=== PATIENT | female | born 1955 | race Caucasian/White ===

== ENCOUNTER → 2018-09-01 | Outpatient (CLI) | payer MEDICARE | END | disposition home or self-care (01) | LOC: OIH 10:26 | PROVIDERS: ATTEND Nurse Practitioner Adult Health | DX: R91.8 Other nonspecific abnormal finding of lung field (principal); R06.00 Dyspnea, unspecified | CPT/HCPCS: 71046 ==

== ENCOUNTER → 2021-05-22 | Outpatient (CLI) | payer OTHER | END | disposition home or self-care (01) | LOC: OIH 08:35 | PROVIDERS: ATTEND Nurse Practitioner Adult Health | DX: Z13.6 Encounter for screening for cardiovascular disorders (principal) | CPT/HCPCS: 75571 ==

== ENCOUNTER 2021-07-13 07:34 | Inpatient (IN) | payer MEDICARE ==
[2021-07-11 09:23] LABS: BASOPHILS % (AUTO) 0.5 % (0.0-5.0); EOSINOPHILS % (AUTO) 0.9 % (0.0-8.0); HEMATOCRIT 44.4 % (36-48); LYMPHOCYTES % (AUTO) 21.8 % (21.0-51.0); MEAN CORPUSCULAR HEMOGLOBIN 31.7 pg (27.0-33.0); MEAN CORPUSCULAR HGB CONC 32.7 g/dL (32.0-36.0); MEAN CORPUSCULAR VOLUME 96.9 fL (79-99); MONOCYTES % (AUTO) 4.8 % (3.0-13.0); NEUTROPHILS % (AUTO) 71.6 % (40.0-77.0); PLATELET COUNT (AUTO) 280 K/uL (130-400); RED BLOOD CELL COUNT(AUTO) 4.58 MIL/uL (4.00-5.50); RED CELL DISTRIBUTION WIDTH 14.6 % (11.0-15.5); WHITE BLOOD COUNT (AUTO) 8.2 K/uL (4.8-10.8)
[2021-07-11 09:23] LABS: BILIRUBIN,URINE Negative (NEGATIVE); COLOR,URINE Yellow (YELLOW); GLUCOSE, URINE (UA) Negative (NEGATIVE); KETONES,URINE Negative (NEGATIVE); LEUKOCYTE ESTERASE ,URINE Large (NEGATIVE); NITRATE,URINE Negative (NEGATIVE); OCCULT BLOOD,URINE Small (NEGATIVE); PROTEIN,URINE Negative (NEGATIVE); UROBILINOGEN,URINE 0.2 mg/dL (0.2-1.0)
[2021-07-11 09:24] LABS: APPEARANCE,URINE SLIGHTLY CLOUDY (CLEAR)
[2021-07-11 09:32] LABS: RBC,URINE 0-1 /HPF (0-1)
[2021-07-11 09:33] LABS: BACTERIA,URINE Rare /HPF (None Seen); SQUAMOUS EPITHELIAL CELL,UR Few /HPF (0-2); TRICHOMONAS,URINE Moderate /LPF (None Seen)
[2021-07-11 09:34] LABS: CREATININE 0.8 mg/dL (0.5-1.5); POTASSIUM 4.5 mmol/L (3.5-5.1)
[2021-07-11 09:43] LABS: INR 0.94 (0.85-1.15); PROTHROMBIN TIME 10.3 SEC (9.6-11.6)
[2021-07-11 09:45] LABS: PARTIAL THROMBOPLASTIN TIME 25.4 SEC (26.3-35.5)
[~2021-07-13] VITALS: Ht 157.5 cm; Wt 56.7 kg
[2021-07-13] VITALS (13 sets, daily range): BP systolic 124–160; BP diastolic 58–92
[~2021-07-13 07:34] MED LIST: AMLO-257 PO; ATOR10TA69 PO; FLUT16H NS; MELO10CA3 PO; METO-408 PO; OMEP40CA21 PO; SOY1TABL2 PO; calcium,mag,zinc PO
[2021-07-13] MEDS ORDERED: 0.9%NACL 1000ML 1,000 ML IV ONE (07:47)
[2021-07-13] MEDS ORDERED: SODIUM BICARB 50MEQ 50ML VIAL 50 ML ONE (09:32)
[2021-07-13] MEDS ORDERED: MEPERIDINE-PF 25 MG/ML SYG ONE ×3 (09:32→10:53)
[2021-07-13] MEDS ORDERED: LIDOCAINE HCL 400MG/20ML VIAL ONE (09:32)
[2021-07-13] MEDS ORDERED: MIDAZOLAM HCL 1 MG/ML 2ML VIAL ONE ×3 (09:32→10:53)
[2021-07-13] MEDS ORDERED: METR-172 PO (09:32)
[2021-07-13] MEDS ORDERED: IOHEXOL-350 50ML VIAL IV ONE (09:32)
[2021-07-13] MEDS ORDERED: NITROGLYCERIN 50MG VIAL IV ONE (09:32)
[2021-07-13] MEDS ORDERED: IOHEXOL 350 MG/ML 100ML INFUS..BTL IV ONE (09:32)
[2021-07-13] MEDS ORDERED: ADENOSINE 90MG VIAL IV ONE (10:41)
[2021-07-13] MEDS ORDERED: METOPROLOL TARTRATE 1 MG/ML 5ML VIAL IV ONE (10:45)
[2021-07-13] MEDS ORDERED: HEPARIN 10,000 UNIT/10ML (1,000 UNIT/ML) VIAL ONE (10:47)
[2021-07-13] MEDS ORDERED: LABETALOL 20MG VIAL IV ONE (11:03)
[2021-07-13] MEDS ORDERED: 0.9%NACL 1000ML 1,000 ML IV SCH (11:30)
[2021-07-13] MEDS ORDERED: ONDANSETRON 4MG INJ ONE (11:39)
[2021-07-13] MEDS ORDERED: KETOROLAC 30MG VIAL (30MG/ML) ONE (11:48)
[2021-07-13] MEDS ORDERED: FAMOTIDINE 20MG VIAL IV ONE (12:14)
[2021-07-13] MEDS ORDERED: ONDANSETRON 4MG INJ IVP PRN (14:30)
[2021-07-13] MEDS ORDERED: ACETAMINOPHEN 325 MG TAB ONE (14:55)
[2021-07-13] MEDS ORDERED: ONDANSETRON 4MG INJ IV PRN (15:00)
[2021-07-13] MEDS ORDERED: ACETAMINOPHEN 325 MG TAB PO PRN (15:00)
[2021-07-13] MEDS ORDERED: LACTULOSE 20 GM/30 ML UDCUP PO PRN (15:00)
[2021-07-13] MEDS: FAMOTIDINE 20MG TAB PO SCH (20:09)
[2021-07-13] MEDS: METOPROLOL SUCCINATE 50 MG TAB.SR.24H PO SCH (20:12)
[2021-07-13] MEDS: FLUTICASONE PROPIONATE 50MCG/SPRAY 16 GM BOTTLE NS SCH (20:13)
[2021-07-13] MEDS: MELOXICAM SUBMICRONIZED 10 MG PO SCH (20:13)
[2021-07-13] MEDS: ACETAMINOPHEN 325 MG TAB PO PRN (20:16)
[2021-07-13] MEDS ORDERED: METOPROLOL TARTRATE 25 MG TAB PO SCH (21:00)
[2021-07-14 04:00] VITALS: BP 138/77
[2021-07-14 08:00] VITALS: BP 139/84
[2021-07-14] MEDS ORDERED: ENOXAPARIN SODIUM 1 MG/KG SQ SCH (09:00)
[2021-07-14] MEDS ORDERED: TICAGRELOR 90 MG TABLET PO SCH (09:00)
[2021-07-14] MEDS: [UNRECOGNIZED DRUG - OTHER] PO SCH (09:00)
[2021-07-14] MEDS: PANTOPRAZOLE 40 MG TAB DR PO SCH (09:00)
[2021-07-14] MEDS: ASPIRIN 81 MG EC TAB PO SCH (09:00)
[2021-07-14] MEDS: FAMOTIDINE 20MG TAB PO SCH ×2 (09:00→20:46)
[2021-07-14] MEDS: ATORVASTATIN 10 MG TABLET PO SCH (09:00)
[2021-07-14] MEDS ORDERED: PANTOPRAZOLE 40 MG TAB DR PO SCH (09:00)
[2021-07-14] MEDS: CALCIUM MAG ZINC PO SCH (09:00)
[2021-07-14] MEDS: METOPROLOL SUCCINATE 50 MG TAB.SR.24H PO SCH ×2 (09:30→20:46)
[2021-07-14] MEDS: AMLODIPINE 5 MG TAB PO SCH (09:30)
[2021-07-14] MEDS: ENOXAPARIN SODIUM 60 MG/0.6 ML SQ SCH ×2 (09:31→20:46)
[2021-07-14] MEDS ORDERED: IPRATROPIUM/ALBUTEROL SULFATE 3 ML SOLUTION IH ONE (10:54)
[2021-07-14] MEDS: IPRATROPIUM/ALBUTEROL SULFATE 3 ML SOLUTION IH SCH ×3 (11:00→22:36)
[2021-07-14 11:38] LABS: MEAN CORPUSCULAR HEMOGLOBIN 32.2 pg (27.0-33.0); MEAN CORPUSCULAR HGB CONC 32.6 g/dL (32.0-36.0); PLATELET COUNT (AUTO) 245 K/uL (130-400); RED BLOOD CELL COUNT(AUTO) 3.94 MIL/uL (4.00-5.50); RED CELL DISTRIBUTION WIDTH 14.7 % (11.0-15.5); WHITE BLOOD COUNT (AUTO) 7.2 K/uL (4.8-10.8)
[2021-07-14] MEDS: FUROSEMIDE 40MG VIAL IV SCH (11:46)
[2021-07-14] MEDS: MORPHINE 2 MG SYG IVP SCH (11:46)
[2021-07-14 11:52] LABS: CREATININE 0.9 mg/dL (0.5-1.5)
[2021-07-14 11:57] LABS: ALBUMIN 3.3 g/dL (3.5-5.0); BILIRUBIN,TOTAL 0.3 mg/dL (0.2-1.0); TOTAL PROTEIN, SERUM 6.6 g/dL (6.0-8.3)
[2021-07-14 11:59] LABS: B-TYPE NATRIURETIC PEPTIDE 70 pg/mL (0-100)
[2021-07-14 12:00] VITALS: BP 179/83
[2021-07-14 12:23] LABS: BASOPHILS % (MANUAL) 1 % (0-2); LYMPHOCYTES % (MANUAL) 22 % (22-44); MONOCYTES % (MANUAL) 7 % (2-9); SEGMENTED NEUTROPHILS % 70 % (40-70)
[2021-07-14 12:26] LABS: MAN.DIFF COMMENT-IMPRESSION MANUAL DIFFERENTIAL; PLATELET MORPHOLOGY COMMENT ADEQUATE
[2021-07-14] MEDS: NITROGLYCERIN 1GM OINT 1 INCH/1GM TD SCH ×2 (13:30→19:45)
[2021-07-14 16:00] VITALS: BP 127/85
[2021-07-14 18:04] LABS: APPEARANCE,URINE Cloudy (CLEAR); BILIRUBIN,URINE Negative (NEGATIVE); COLOR,URINE Yellow (YELLOW); GLUCOSE, URINE (UA) Negative (NEGATIVE); KETONES,URINE Trace mg/dL (NEGATIVE); LEUKOCYTE ESTERASE ,URINE Moderate (NEGATIVE); NITRATE,URINE Negative (NEGATIVE); OCCULT BLOOD,URINE Small (NEGATIVE); PROTEIN,URINE POS 1+ mg/dL (NEGATIVE); UROBILINOGEN,URINE 0.2 mg/dL (0.2-1.0)
[2021-07-14 18:17] LABS: BACTERIA,URINE Few /HPF (None Seen); MUCUS,URINE Few LPF (None Seen); SQUAMOUS EPITHELIAL CELL,UR Many /HPF (0-2)
[2021-07-14] MEDS: ACETAMINOPHEN 325 MG TAB PO PRN (19:45)
[2021-07-14 19:52] VITALS: BP 139/84
[2021-07-14] MEDS: FLUTICASONE PROPIONATE 50MCG/SPRAY 16 GM BOTTLE NS SCH (20:55)
[2021-07-14] MEDS: MELOXICAM SUBMICRONIZED 10 MG PO SCH (20:55)
[2021-07-14] MEDS ORDERED: TRAZODONE HCL 50 MG TAB PO SCH (21:30)
[2021-07-14 23:24] VITALS: BP 128/78
[2021-07-15] MEDS: NITROGLYCERIN 1GM OINT 1 INCH/1GM TD SCH ×3 (03:41→21:26)
[2021-07-15 04:15] VITALS: BP 130/83
[2021-07-15 04:29] LABS: HEMATOCRIT 40.3 % (36-48); MEAN CORPUSCULAR HEMOGLOBIN 31.5 pg (27.0-33.0); MEAN CORPUSCULAR HGB CONC 33.5 g/dL (32.0-36.0); MEAN CORPUSCULAR VOLUME 93.9 fL (79-99); RED BLOOD CELL COUNT(AUTO) 4.29 MIL/uL (4.00-5.50); RED CELL DISTRIBUTION WIDTH 14.1 % (11.0-15.5); WHITE BLOOD COUNT (AUTO) 6.2 K/uL (4.8-10.8)
[2021-07-15 05:08] LABS: CREATININE 0.9 mg/dL (0.5-1.5)
[2021-07-15] MEDS ORDERED: KCL 20 MEQ ERTAB PO ONE (05:30)
[2021-07-15] MEDS: IPRATROPIUM/ALBUTEROL SULFATE 3 ML SOLUTION IH SCH ×4 (06:17→20:59)
[2021-07-15] MEDS: ACETAMINOPHEN 325 MG TAB PO PRN ×2 (07:26→18:36)
[2021-07-15 07:49] VITALS: BP 128/86
[2021-07-15] MEDS: [UNRECOGNIZED DRUG - OTHER] PO SCH (09:00)
[2021-07-15] MEDS: ATORVASTATIN 10 MG TABLET PO SCH (09:00)
[2021-07-15] MEDS: PANTOPRAZOLE 40 MG TAB DR PO SCH (09:00)
[2021-07-15] MEDS: CALCIUM MAG ZINC PO SCH (09:00)
[2021-07-15] MEDS: METOPROLOL SUCCINATE 50 MG TAB.SR.24H PO SCH ×2 (09:22→21:30)
[2021-07-15] MEDS: ASPIRIN 81 MG EC TAB PO SCH (09:26)
[2021-07-15] MEDS: TICAGRELOR 90 MG TABLET PO SCH ×2 (09:27→21:25)
[2021-07-15] MEDS: AMLODIPINE 5 MG TAB PO SCH (09:29)
[2021-07-15] MEDS: ENOXAPARIN SODIUM 60 MG/0.6 ML SQ SCH ×2 (09:29→21:37)
[2021-07-15] MEDS: FAMOTIDINE 20MG TAB PO SCH ×2 (09:31→21:27)
[2021-07-15] MEDS ORDERED: MONT-39 PO (09:34)
[2021-07-15] MEDS: FUROSEMIDE 40MG VIAL IV SCH (11:30)
[2021-07-15] MEDS: MORPHINE 2 MG SYG IVP SCH (11:30)
[2021-07-15 11:32] VITALS: BP 105/55
[2021-07-15] MEDS ORDERED: BUPR75TA8 PO (12:46)
[2021-07-15] MEDS ORDERED: MIDAZOLAM HCL 1 MG/ML 2ML VIAL IVP PRN (13:30)
[2021-07-15 16:20] VITALS: BP 127/85
[2021-07-15 20:20] VITALS: BP 140/89
[2021-07-15] MEDS: MELOXICAM SUBMICRONIZED 10 MG PO SCH (21:00)
[2021-07-15] MEDS: FLUTICASONE PROPIONATE 50MCG/SPRAY 16 GM BOTTLE NS SCH (21:25)
[2021-07-16] VITALS (8 sets, daily range): BP systolic 111–146; BP diastolic 58–86
[2021-07-16 04:41] LABS: BASOPHILS % (AUTO) 0.5 % (0.0-5.0); EOSINOPHILS % (AUTO) 0.9 % (0.0-8.0); HEMATOCRIT 40.3 % (36-48); LYMPHOCYTES % (AUTO) 24.5 % (21.0-51.0); MEAN CORPUSCULAR HEMOGLOBIN 31.4 pg (27.0-33.0); MEAN CORPUSCULAR HGB CONC 32.8 g/dL (32.0-36.0); MONOCYTES % (AUTO) 9.2 % (3.0-13.0); NEUTROPHILS % (AUTO) 64.7 % (40.0-77.0); PLATELET COUNT (AUTO) 244 K/uL (130-400); RED CELL DISTRIBUTION WIDTH 13.9 % (11.0-15.5); WHITE BLOOD COUNT (AUTO) 6.5 K/uL (4.8-10.8)
[2021-07-16 04:57] LABS: CREATININE 0.9 mg/dL (0.5-1.5); POTASSIUM 3.8 mmol/L (3.5-5.1)
[2021-07-16] MEDS: NITROGLYCERIN 1GM OINT 1 INCH/1GM TD SCH ×2 (05:29→11:49)
[2021-07-16] MEDS: IPRATROPIUM/ALBUTEROL SULFATE 3 ML SOLUTION IH SCH ×4 (06:19→22:59)
[2021-07-16] MEDS ORDERED: 0.9%NACL 1000ML 1,000 ML IV SCH ×2 (07:30→17:30)
[2021-07-16] MEDS: AMLODIPINE 5 MG TAB PO SCH (08:33)
[2021-07-16] MEDS: METOPROLOL SUCCINATE 50 MG TAB.SR.24H PO SCH ×2 (08:33→21:12)
[2021-07-16] MEDS: ATORVASTATIN 10 MG TABLET PO SCH (08:33)
[2021-07-16] MEDS: TICAGRELOR 90 MG TABLET PO SCH ×2 (08:34→21:12)
[2021-07-16] MEDS: ASPIRIN 81 MG EC TAB PO SCH (08:34)
[2021-07-16] MEDS: FAMOTIDINE 20MG TAB PO SCH ×2 (09:00→21:12)
[2021-07-16] MEDS: PANTOPRAZOLE 40 MG TAB DR PO SCH (09:00)
[2021-07-16] MEDS: CALCIUM MAG ZINC PO SCH (09:00)
[2021-07-16] MEDS: [UNRECOGNIZED DRUG - OTHER] PO SCH (09:00)
[2021-07-16] MEDS: ACETAMINOPHEN 325 MG TAB PO PRN ×2 (09:27→18:30)
[2021-07-16] MEDS: MORPHINE 2 MG SYG IVP SCH (09:28)
[2021-07-16] MEDS: FUROSEMIDE 40MG VIAL IV SCH (09:28)
[2021-07-16] MEDS ORDERED: NITROGLYCERIN 50MG VIAL IV ONE (15:26)
[2021-07-16] MEDS ORDERED: HEPARIN 10,000 UNIT/10ML (1,000 UNIT/ML) VIAL ONE (15:26)
[2021-07-16] MEDS ORDERED: IOHEXOL 350 MG/ML 100ML INFUS..BTL IV ONE (15:26)
[2021-07-16] MEDS ORDERED: MEPERIDINE-PF 25 MG/ML SYG ONE ×3 (15:26→16:36)
[2021-07-16] MEDS ORDERED: IOHEXOL-350 50ML VIAL IV ONE (15:26)
[2021-07-16] MEDS ORDERED: LIDOCAINE HCL 400MG/20ML VIAL ONE (15:27)
[2021-07-16] MEDS ORDERED: METOPROLOL TARTRATE 1 MG/ML 5ML VIAL IV ONE (16:39)
[2021-07-16] MEDS: FLUTICASONE PROPIONATE 50MCG/SPRAY 16 GM BOTTLE NS SCH (21:13)
[2021-07-17] VITALS: BP 105/67
[2021-07-17 04:00] VITALS: BP 113/72
[2021-07-17 04:24] LABS: MEAN CORPUSCULAR HEMOGLOBIN 31.8 pg (27.0-33.0); MEAN CORPUSCULAR HGB CONC 32.8 g/dL (32.0-36.0); RED BLOOD CELL COUNT(AUTO) 3.3 MIL/uL (4.00-5.50); RED CELL DISTRIBUTION WIDTH 13.7 % (11.0-15.5); WHITE BLOOD COUNT (AUTO) 6.4 K/uL (4.8-10.8)
[2021-07-17 04:56] LABS: CREATININE 0.6 mg/dL (0.5-1.5); POTASSIUM 3.8 mmol/L (3.5-5.1)
[2021-07-17] MEDS: IPRATROPIUM/ALBUTEROL SULFATE 3 ML SOLUTION IH SCH (07:25)
[2021-07-17 07:30] VITALS: BP 123/73
[2021-07-17] MEDS: FAMOTIDINE 20MG TAB PO SCH (08:25)
[2021-07-17] MEDS: PANTOPRAZOLE 40 MG TAB DR PO SCH (08:25)
[2021-07-17] MEDS: ASPIRIN 81 MG EC TAB PO SCH (08:25)
[2021-07-17] MEDS: TICAGRELOR 90 MG TABLET PO SCH (08:25)
[2021-07-17] MEDS: ATORVASTATIN 10 MG TABLET PO SCH (08:25)
[2021-07-17] MEDS: AMLODIPINE 5 MG TAB PO SCH (08:26)
[2021-07-17] MEDS: METOPROLOL SUCCINATE 50 MG TAB.SR.24H PO SCH (08:26)
[2021-07-17] MEDS ORDERED: AEC81 PO (10:16)
[2021-07-17] MEDS ORDERED: METO-391 PO (10:16)
[2021-07-17] MEDS ORDERED: TICA90TA PO (10:16)
[2021-07-17] MEDS ORDERED: SULF1TAB42 PO (10:16)
== END 2021-07-17 11:00 | disposition home or self-care (01) | DRG 246 ==
LOC: DAH 07:34 → DAHIP 07:35 → 4BH 15:37
PROVIDERS: ADMIT Internal Medicine; ATTEND Internal Medicine
PROC: 4A023N7 Measurement of Cardiac Sampling and Pressure, Left Heart, Percutaneous Approach (ICD-10-PCS; principal; 2021-07-13)
PROC: B2111ZZ Fluoroscopy of Multiple Coronary Arteries using Low Osmolar Contrast (ICD-10-PCS; 2021-07-13)
PROC: B2151ZZ Fluoroscopy of Left Heart using Low Osmolar Contrast (ICD-10-PCS; 2021-07-13)
PROC: 4A033BC Measurement of Arterial Pressure, Coronary, Percutaneous Approach (ICD-10-PCS; 2021-07-13)
PROC: 027034Z Dilation of Coronary Artery, One Artery with Drug-eluting Intraluminal Device, Percutaneous Approach (ICD-10-PCS; 2021-07-16)
PROC: 02F03ZZ Fragmentation in Coronary Artery, One Artery, Percutaneous Approach (ICD-10-PCS; 2021-07-16)
PROC: B2151ZZ Fluoroscopy of Left Heart using Low Osmolar Contrast (ICD-10-PCS; 2021-07-16)
DX: I25.119 Atherosclerotic heart disease of native coronary artery with unspecified angina pectoris (principal); I50.31 Acute diastolic (congestive) heart failure; E78.5 Hyperlipidemia, unspecified; J44.9 Chronic obstructive pulmonary disease, unspecified; I73.9 Peripheral vascular disease, unspecified; G89.29 Other chronic pain; F17.200 Nicotine dependence, unspecified, uncomplicated; F41.1 Generalized anxiety disorder; I11.0 Hypertensive heart disease with heart failure; F41.0 Panic disorder [episodic paroxysmal anxiety]; I25.84 Coronary atherosclerosis due to calcified coronary lesion; R09.02 Hypoxemia; Z90.49 Acquired absence of other specified parts of digestive tract; Z90.710 Acquired absence of both cervix and uterus; Z88.8 Allergy status to other drugs, medicaments and biological substances; Z79.82 Long term (current) use of aspirin; Z82.5 Family history of asthma and other chronic lower respiratory diseases; Z82.3 Family history of stroke; Z82.0 Family history of epilepsy and other diseases of the nervous system; Z82.49 Family history of ischemic heart disease and other diseases of the circulatory system; Z80.9 Family history of malignant neoplasm, unspecified
CPT/HCPCS: 36415; 71045; 71046; 80048; 80053; 81001; 82550; 83874; 83880; 84132; 84145; 84484; 85025; 85027; 85347; 85610; 85730; 87077; 87088; 87186; 93005; 93306; 93356; 93454; 93458; 93571; 93799; 94640; 96360; 96361; 99156; 99157; A4606; C1760; C1769; C1887; C1894; C9600; G0378; J0153; J1644; J1650; J1885; J1940; J2175; J2250; J2405; J3490; J7030; Q9967

== ENCOUNTER → 2021-08-30 | Outpatient (CLI) | payer MEDICARE ==
[~2021-08-30] MED LIST changes: +AEC81 PO; +BUPR75TA8 PO; +METO-391 PO; -METO-408 PO; +MONT-39 PO; +SULF1TAB42 PO; +TICA90TA PO
== END | disposition home or self-care (01) ==
LOC: SHCH 09:54
PROVIDERS: ATTEND Internal Medicine Cardiovascular Disease
DX: I70.293 Other atherosclerosis of native arteries of extremities, bilateral legs (principal)
CPT/HCPCS: 93925